=== PATIENT | male | born 1945 | race Caucasian/White ===

== ENCOUNTER → 2019-06-25 15:48 | Outpatient (CLI) | payer MEDICARE, SELFPAY ==
[2019-06-25 16:14] LABS: Hemoglobin 12.9 g/dL (13.5-17.5); Mean Corpuscular Hemoglobin 25.6 PG (26-34); Mean Corpuscular Volume 75.3 fL (80-100); Platelet Count 465 X10^3/uL (150-400); Red Blood Cell Count 5.04 X10^6/uL (4.5-5.9); Red Cell Distribution Width 15.9 % (11.6-14.8); White Blood Cell Count 12.1 X10^3/uL (4.5-11.0)
[2019-06-25 17:03] LABS: HEMOLYSIS 142 (0-50)
== END ==
PROVIDERS: PCP Internal Medicine; Visit Provider Registered Nurse
DX: I48.91 Unspecified atrial fibrillation (principal); K74.60 Unspecified cirrhosis of liver; Z13.6 Encounter for screening for cardiovascular disorders
CPT/HCPCS: 36415; 80053; 80061; 85027

== ENCOUNTER → 2019-06-27 14:24 | Outpatient (CLI) | payer MEDICARE, SELFPAY ==
[2019-06-27 15:27] LABS: Alanine Aminotransferase 31 IU/L (21-72); Albumin 3.6 g/dL (3.5-5.0); Albumin Globulin Ratio 0.7 (1.0-2.8); Alkaline Phosphatase 132 U/L (38-126); Aspartate Aminotransferase 72 IU/L (17-59); BUN Creatinine Ratio 34.3 (6-22); Bilirubin Total 0.6 mg/dL (0.2-1.3); Blood Urea Nitrogen 24 mg/dL (9-20); Calcium 9.1 mg/dL (8.4-10.2); Carbon Dioxide 24 mmol/L (22-32); Chloride 103 mmol/L (98-107); Cholesterol 154 mg/dL (140-199); Estimated Glomerular Filt Rate > 60.0 mL/min (>60); Globulin 5.4 g/dL (1.7-4.1); Glucose 103 mg/dL (80-110); HDL Cholesterol 38 mg/dL (40-60); HEMOLYSIS < 15 (0-50); LDL Cholesterol Calculated 102 mg/dL (<100); Potassium 4.6 mmol/L (3.4-5.1); Sodium 139 mmol/L (137-145); Triglycerides 69 mg/dL (35-150)
== END ==
PROVIDERS: PCP Internal Medicine; Visit Provider Registered Nurse
DX: I48.91 Unspecified atrial fibrillation (principal); K74.60 Unspecified cirrhosis of liver; Z13.6 Encounter for screening for cardiovascular disorders
CPT/HCPCS: 36415; 80053; 80061

== ENCOUNTER → 2019-07-15 15:54 | Outpatient (CLI) | payer MEDICARE, SELFPAY ==
--- NOTE | 2019-07-15 15:56 | DI.ECHO.S_ITS ---
[facility] +---------+ : : [address] : [address] : : : : [id number] : : : : Phone: [phone]---------+ Echocardiogram Report + + :Name: NYDIA VILLASENOR Study Date: 07/15/2019 Height: 69 in : :[facility] Exam Location: [facility] Weight: 120 lb : : Gender: Male BSA: 1.7 m2 : :: 1945 Age: 74 yrs BP: 110/60 mmHg: :Reason For Study: AFIB : : Performed By: Jack Hampton : :Referring: MARTA RIVERS : + + Interpretation Summary -There is global hypokinesis of the left ventricle with severely reduced LVEF of 10-15%. -The mid to apical anterior wall is akinetic. -The mid to apical septal wall and apex are dyskinetic. -The mid to apical inferior and inferoseptal wall are akinetic. -The lateral wall is hypokinetic. -There is a large, layered mural thrombus in th apex, extending to the anteroapical and inferoapical segments. The superficial part of the thrombus appears more like a fresh clot. -Overall this echo shows evidence of infarct in LAD and RCA territory and multivessel coronary artery disease with an apical LV thrombus. These findings are new compared to the prior study. -The PASP is elevated at 51 mmHg which is also new. -Patient was contacted and instructed to refer to the ER. -The ER provider was notified. -The primary care office was contacted for critical results. Procedure: A two-dimensional transthoracic echocardiogram with color flow and Doppler was performed. The study quality was technically difficult. Comparison is made with the echocardiogram of 05/09/14. A contrast injection of Definity was performed to improve assessment of LV function. The patient was in normal sinus rhythm during the exam. The patient was tachycardic with a heart rate of 94-120 beats per minute. Left Ventricle: The left ventricle is normal in size. Proximal septal thickening is noted. A mural thrombus is noted in the left ventricular apex and midway along the septal wall. The ejection fraction is estimated to be 10- 15%. -There is global hypokinesis of the left ventricle with severely reduced LVEF of 10-15%. -The mid to apical anterior wall is akinetic. -The mid to apical septal wall and apex are dyskinetic. -The mid to apical inferior and inferoseptal wall are akinetic. -The lateral wall is hypokinetic. Diastolic parameters suggest a pseudonormalization pattern, consistent with probable elevated filling pressures. Right Ventricle: The right ventricle is normal in size and function. Atria: The left atrium is severely dilated. Right atrial size is normal. There is no Doppler evidence for an atrial septal defect. Mitral Valve: The mitral valve is normal in structure and function. There is trace mitral regurgitation. Aortic Valve: The aortic valve is trileaflet. The aortic valve opens well. No aortic regurgitation is present. Tricuspid Valve: The tricuspid valve is normal in structure and function. There is trace tricuspid regurgitation. The right ventricular systolic pressure is estimated to be at least 51 mmHg based on an estimated right atrial pressure of 3 mm Hg. Pulmonic Valve: The pulmonic valve is not well visualized. Great Vessels: The aortic root is normal size. The dimensions of the ascending aorta are normal. The pulmonary artery is normal size. The IVC is of normal diameter and collapses greater than 50% with a sniff. This suggests a low right atrial pressure of 3 mm Hg. Pericardium/ Pleura There is no pericardial effusion. There is no pleural effusion. MMode/2D Measurements & Calculations LVIDd: 5.4 cm LVOT diam: 2.0 cm LVIDs: 4.7 cm Ao root diam: 3.3 cm FS: 13.8 % Aortic Jxn: 2.5 cm EPSS: 1.2 cm asc Aorta Diam: 3.0 cm IVSd: 0.92 cm Ao Arch Diam (Prox Trans): 2.5 cm LVPWd: 0.84 cm LV cordero. diameter/BSA (cm/m^2): 3.3 LV sys. diameter/BSA (cm/m^2): 2.8 LA dimension: 3.6 cm RA long axis: 4.2 cm LA A2 area: 24.1 cm2 RA area: 13.4 cm2 LA A4 area: 27.6 cm2 RA vol: 36.2 ml LA length (vol): 5.8 cm RA : 21.8 ml/m2 LA vol: 96.9 ml IVC diam: 1.9 cm LA vol index: 58.3 ml/m2 Doppler Measurements & Calculations Ao V2 max: 97.3 cm/sec LVOT Max Leonid: 79.0 cm/sec Ao V2 mean: 68.0 cm/sec LV V1 max P.5 mmHg Ao max P.8 mmHg LV V1 VTI: 9.2 cm Ao mean P.0 mmHg CHILO(I,D): 2.0 cm2 Ao V2 VTI: 14.7 cm CHILO(V,D): 2.6 cm2 sev ratio: 0.63 CHILO indexed to BSA (cm^2/m^2): 1.2 MV E max leonid: 63.6 cm/sec TR max leonid: 344.9 cm/sec MV A max leonid: 45.7 cm/sec TR max P.6 mmHg MV E/A: 1.4 PA V2 max: 74.8 cm/sec Med Peak E' Leonid: 2.9 cm/sec PA V2 mean: 58.4 cm/sec E/E' med: 22.0 PA mean P.4 mmHg MV dec time: 0.08 sec PA pr(Accel): 29.1 mmHg PA Accel Time: 0.11 sec SV(LVOT): 29.1 ml Electronically signed by: Christiano Saleh M.D. on Reading Physician:07/15/2019 05:50 PM
== END ==
PROVIDERS: PCP Internal Medicine; Visit Provider Registered Nurse
DX: I21.9 Acute myocardial infarction, unspecified (principal); I48.91 Unspecified atrial fibrillation; I25.10 Atherosclerotic heart disease of native coronary artery without angina pectoris
CPT/HCPCS: 93306; Q9957

== ENCOUNTER 2019-07-15 17:44 | Emergency (ER) | payer MEDICARE, SELFPAY ==
--- NOTE | 2019-07-15 17:52 | DI.RAD.S_ITS ---
PROCEDURE: XR CHEST 1V INDICATIONS: chest pain TECHNIQUE: One view of the chest was acquired. COMPARISON: [facility], , CHEST 2 VIEW, 09/25/2017, 16:18. FINDINGS: Surgical changes and devices: None. Lungs and pleura: Chronic interstitial changes are present. There is blunting of the costophrenic angles as well as nodular opacity in the lateral right base without interval change. There is increased opacity within the retrocardiac region haziness within the left base appearing new. Mediastinum: Mediastinal contours appear normal. Heart size is normal. Bones and chest wall: No suspicious bony lesions. Overlying soft tissues appear unremarkable. IMPRESSION: Retrocardiac opacity and hazy in the left base suggestive of effusion and retrocardiac consolidation possibly pneumonia. Dictated by: Sadie Payne M.D. on 07/15/2019 at 19:04 Approved by: Sadie Payne M.D. on 07/15/2019 at 19:05
[2019-07-15 17:59] VITALS: BP 115/78; PULSE 106; RESP 24; TEMP 36.6; O2SAT 98; BMI 17.9
--- NOTE | 2019-07-15 18:00 | ED_ITS ---
HPI - Recheck/Abnormal Lab/Rx General Chief Complaint: Recheck/Abnormal Lab/Rx Stated Complaint: Had Echo, got call to go to ER Time Seen by Provider: 07/15/19 17:52 Source: patient and family (daughter) Mode of arrival: ambulatory Limitations: no limitations History of Present Illness HPI narrative: 74-year-old male comes to the emergency department with complaint of abnormal echo. Patient had his echo ordered because he had of chest discomfort 2-3 weeks ago. Patient saw his primary care had an EKG which was on 06/25. Since then he denies any chest pain, shortness of breath, diaphoresis. He denies any nausea or vomiting. He denies any lightheadedness or syncope. He denies any swelling in his lower extremities. He denies any symptoms currently. He does have memory problems, he lives with his daughter who states that over the last 2 weeks she has not appreciated any complaint or new symptoms. His daughter states that he complained of chest discomfort and that was why they initiated an office visit and ECHO was ordered but has not been complaining of anything else recently. Patient lives with his daughter. Today his echo noted a large infarct in the apex interior with large ventricular clot and EF of 15%. Patient is currently asymptomatic int he room. Related Data Home Medications Medication Instructions Recorded Confirmed aspirin 81 mg PO DAILY 07/15/19 07/15/19 Previous Rx's Medication Instructions Recorded digoxin 125 mcg tablet 125 mcg PO DAILY #30 tab 06/27/19 Allergies Allergy/AdvReac Type Severity Reaction Status Date / Time No Known Drug Allergies Allergy Verified 07/15/19 17:59 Review of Systems Review of Systems ROS Unobtainable: All systems reviewed & are unremarkable except as noted in HPI and below PFSH Medical History Atrial fibrillation (Chronic 05/19/14) Hepatic cirrhosis (Chronic 05/19/14) Social History Smoking Status: Never smoker alcohol intake: current (Has not drank in a long time.) substance use type: marijuana Social History Smoking Status: Never smoker alcohol intake: current (Has not drank in a long time.) substance use type: marijuana Exam Narrative Exam Narrative: GENERAL: Alert and oriented, thin elderly male in no acute distress, patient able to answer some medical history but does not appear to be a reliable historian HEENT: Head normocephalic, atraumatic, EOMI, pupils reactive, face symmetric, moist mucous membranes NECK: Supple, full range of motion CARDIOVASCULAR: Regular rate and rhythm without murmurs, rubs or gallops. No JVD. No edema bilateral lower extremities. RESPIRATORY: Breath sounds equal bilaterally, no wheezes rales or rhonchi. No tachypnea, no accessory muscle use. ABDOMEN: Soft, nontender. Normoactive bowel sounds all 4 quadrants. No guarding or rebound, rigidity, no mass : No CVA tenderness EXTREMITIES: Normal range of motion. Neurovascularly intact NEUROLOGICAL: Cranial nerves II through XII grossly intact. Moving all extremities SKIN: Warm, dry, no petechiae, no rashes or lesions. Initial Vital Signs Initial Vital Signs: Vital Signs Temperature 97.8 F 07/15/19 17:59 Pulse Rate 106 H 07/15/19 17:59 Respiratory Rate 24 07/15/19 17:59 Blood Pressure 115/78 07/15/19 17:59 Pulse Oximetry 98 07/15/19 17:59 Course Orders Ordered: ED Orders 07/15/19 17:52 XR chest 1V Stat 07/15/19 17:53 EKG-12 Lead Stat 07/15/19 18:00 B Type Natriuretic Peptide Stat Complete Blood Count AUTO DIFF Stat Comprehensive Metabolic Panel Stat Digoxin Stat Lipase Stat Partial Thromboplastin Time Stat Prothrombin Time INR Stat Troponin & CK Cardiac Panel Stat Sodium Chloride (Normal Saline 0.9%) 1,000 mls @ 150 mls/hr IV CONT VAIBHAV Last Admin: 07/15/19 18:28 Dose: 150 mls/hr Documented by: MARTÍN Heparin Sodium/Dextrose (Heparin Drip) 25,000 unit in 500 mls @ 13.2 mls/hr IV CONT VAIBHAV; Protocol Last Admin: 07/15/19 18:33 Dose: 12 units/kg/hr, 13.2 mls/hr Documented by: MARTÍN Discontinued Medications Heparin Sodium (Porcine) (Heparin) 4,000 unit IV NOW ONE Stop: 07/15/19 18:26 Last Admin: 07/15/19 18:34 Dose: 4,000 unit Documented by: MARTÍN Vital Signs Vital signs: Vital Signs - 8 hr 07/15/19 17:59 07/15/19 18:52 07/15/19 19:30 Temperature 97.8 F Pulse Rate 106 H 101 H 101 H Respiratory Rate 24 19 18 Blood Pressure 115/78 Blood Pressure [Right Arm] 116/74 114/77 Pulse Oximetry 98 99 98 07/15/19 20:26 07/15/19 20:28 Temperature Pulse Rate 91 H Respiratory Rate 22 Blood Pressure Blood Pressure [Right Arm] 114/71 Pulse Oximetry 99 MDM - Recheck/Abnormal Lab/Rx Lab Data Attestation: I reviewed the patient's lab results. Result diagrams: 07/15/19 18:00 07/15/19 18:00 Labs: Lab Results 07/15/19 07/15/19 07/15/19 Range/Units 18:00 18:00 18:00 WBC 8.6 (4.5-11.0) X10^3/uL RBC 4.40 L (4.5-5.9) X10^6/uL Hgb 10.9 L (13.5-17.5) g/dL Hct 33.8 L (41-53) % MCV 76.9 L (80-100) fL MCH 24.7 L (26-34) PG MCHC 32.1 (30-36) % RDW 17.0 H (11.6-14.8) % Plt Count 415 H (150-400) X10^3/uL Neut % (Auto) 86.2 H (50-75) % Lymph % (Auto) 7.4 L (25-40) % Perkins % (Auto) 5.3 (3-14) % Eos % (Auto) 0.5 L (2-4) % Baso % (Auto) 0.6 (0-2) % Neut # (Auto) 7400 H (6620-1627) /uL Lymph # (Auto) 600 L (4632-6187) /uL Perkins # (Auto) 500 (0-900) /uL Eos # (Auto) 0 (0-450) /uL Baso # (Auto) 100 (0-100) /uL PT 13.4 H (10.1-12.7) SECONDS INR 1.2 (0.9-1.3) APTT 33 (26.4-36.2) SECONDS Sodium 137 (137-145) mmol/L Potassium 3.8 (3.4-5.1) mmol/L Chloride 104 (98-107) mmol/L Carbon Dioxide 21 L (22-32) mmol/L BUN 19 (9-20) mg/dL Creatinine 0.60 L (0.66-1.25) mg/dL Estimated GFR > 60.0 (>60) mL/min BUN/Creatinine Ratio 31.7 H (6-22) Glucose 121 H (80-110) mg/dL Calcium 8.4 (8.4-10.2) mg/dL Total Bilirubin 0.6 (0.2-1.3) mg/dL AST 32 (17-59) IU/L ALT 19 L (21-72) IU/L Alkaline Phosphatase 150 H (38-126) U/L Total Creatine Kinase 54 L (55-170) U/L CK-MB (CK-2) TNP CK-MB (CK-2) Rel Index TNP Troponin I 1.420 H* (0.01-0.034) ng/mL B-Natriuretic Peptide 2810 H (<100) Total Protein 8.4 H (6.3-8.2) g/dL Albumin 3.4 L (3.5-5.0) g/dL Globulin 5.0 H (1.7-4.1) g/dL Albumin/Globulin Ratio 0.7 L (1.0-2.8) Lipase 70 (23-300) U/L Digoxin (0.8-2.0) ng/mL 07/15/19 Range/Units 18:00 WBC (4.5-11.0) X10^3/uL RBC (4.5-5.9) X10^6/uL Hgb (13.5-17.5) g/dL Hct (41-53) % MCV (80-100) fL MCH (26-34) PG MCHC (30-36) % RDW (11.6-14.8) % Plt Count (150-400) X10^3/uL Neut % (Auto) (50-75) % Lymph % (Auto) (25-40) % Perkins % (Auto) (3-14) % Eos % (Auto) (2-4) % Baso % (Auto) (0-2) % Neut # (Auto) (0257-8108) /uL Lymph # (Auto) (1375-9634) /uL Perkins # (Auto) (0-900) /uL Eos # (Auto) (0-450) /uL Baso # (Auto) (0-100) /uL PT (10.1-12.7) SECONDS INR (0.9-1.3) APTT (26.4-36.2) SECONDS Sodium (137-145) mmol/L Potassium (3.4-5.1) mmol/L Chloride (98-107) mmol/L Carbon Dioxide (22-32) mmol/L BUN (9-20) mg/dL Creatinine (0.66-1.25) mg/dL Estimated GFR (>60) mL/min BUN/Creatinine Ratio (6-22) Glucose (80-110) mg/dL Calcium (8.4-10.2) mg/dL Total Bilirubin (0.2-1.3) mg/dL AST (17-59) IU/L ALT (21-72) IU/L Alkaline Phosphatase (38-126) U/L Total Creatine Kinase (55-170) U/L CK-MB (CK-2) CK-MB (CK-2) Rel Index Troponin I (0.01-0.034) ng/mL B-Natriuretic Peptide (<100) Total Protein (6.3-8.2) g/dL Albumin (3.5-5.0) g/dL Globulin (1.7-4.1) g/dL Albumin/Globulin Ratio (1.0-2.8) Lipase (23-300) U/L Digoxin < 0.4 L (0.8-2.0) ng/mL Imaging Data Chest x-ray: Radiologist's impression: [address] [address] XRay Report Signed Patient: Graham Baker HMR#: [id number] : 6Acct:[id number] Age/Sex: 74 / MDate of Service: 07/15/19 Loc: ED Accession Number: [id number] Procedure: XR chest 1V Ordering Provider: Brigida Mckeno D.O. PROCEDURE: XR CHEST 1V INDICATIONS: chest pain TECHNIQUE: One view of the chest was acquired. COMPARISON: [facility], CR, CHEST 2 VIEW, 09/25/2017, 16:18. FINDINGS: Surgical changes and devices: None. Lungs and pleura: Chronic interstitial changes are present. There is blunting of the costophrenic angles as well as nodular opacity in the lateral right base without interval change. There is increased opacity within the retrocardiac region haziness within the left base appearing new. Mediastinum: Mediastinal contours appear normal. Heart size is normal. Bones and chest wall: No suspicious bony lesions. Overlying soft tissues appear unremarkable. IMPRESSION: Retrocardiac opacity and hazy in the left base suggestive of effusion and retrocardiac consolidation possibly pneumonia. Dictated by: Sadie Payne M.D. on 07/15/2019 at 19:04 Approved by: Sadie Payne M.D. on 07/15/2019 at 19:05 ECHO: Radiologist's impression: [facility] DATE TYPE STATUS AUTHOR Hx 07/15/19 17:52 07/15/19 15:56 Christiano Saleh OliviaGraham Ruby 74, 1945 [facility] ER, Main ED R11 175.26cm 55kg BMI: 17.9kg/m? Recheck/Abnormal Lab/Rx Search Chart No Data to Display ONSET 05/19/14 05/19/14 Today 17:59 [place],Graham Ruby 74 [address] [address] Echocardiography Report Signed Patient: Graham Baker [facility]#: [id number] : 1945cct:[id number] Age/Sex: 74 / MDate of Service: 07/15/19 Loc: ECHO Accession Number: [id number] Procedure: EC echo doppler complete Ordering Provider: Marta Taylor [place] +---------+ [facility] +---------+ : : [address] [place] [address] : : : : [place], [place] : : : : [id number] : : : : Phone: [phone] : [phone]---------+ Echocardiogram Report + + :Name: GRAHAM BAKER Study Date: 07/15/2019 Height: 69 in : :[facility] Exam Location: [facility] Weight: 120 lb : : Gender: Male BSA: 1.7 m2 : :: 1945 Age: 74 yrs BP: 110/60 mmHg: :Reason For Study: AFIB : : Performed By: Jack Hampton : :Referring: MARTA TAYLOR : + + Interpretation Summary -There is global hypokinesis of the left ventricle with severely reduced LVEF of 10-15%. -The mid to apical anterior wall is akinetic. -The mid to apical septal wall and apex are dyskinetic. -The mid to apical inferior and inferoseptal wall are akinetic. -The lateral wall is hypokinetic. -There is a large, layered mural thrombus in th apex, extending to the anteroapical and inferoapical segments. The superficial part of the thrombus appears more like a fresh clot. -Overall this echo shows evidence of infarct in LAD and RCA territory and multivessel coronary artery disease with an apical LV thrombus. These findings are new compared to the prior study. -The PASP is elevated at 51 mmHg which is also new. -Patient was contacted and instructed to refer to the ER. -The ER provider was notified. -The primary care office was contacted for critical results. Procedure: A two-dimensional transthoracic echocardiogram with color flow and Doppler was performed. The study quality was technically difficult. Comparison is made with the echocardiogram of 05/09/14. A contrast injection of Definity was performed to improve assessment of LV function. The patient was in normal sinus rhythm during the exam. The patient was tachycardic with a heart rate of 94-120 beats per minute. Left Ventricle: The left ventricle is normal in size. Proximal septal thickening is noted. A mural thrombus is noted in the left ventricular apex and midway along the septal wall. The ejection fraction is estimated to be 10- 15%. -There is global hypokinesis of the left ventricle with severely reduced LVEF of 10-15%. -The mid to apical anterior wall is akinetic. -The mid to apical septal wall and apex are dyskinetic. -The mid to apical inferior and inferoseptal wall are akinetic. -The lateral wall is hypokinetic. Diastolic parameters suggest a pseudonormalization pattern, consistent with probable elevated filling pressures. Right Ventricle: The right ventricle is normal in size and function. Atria: The left atrium is severely dilated. Right atrial size is normal. There is no Doppler evidence for an atrial septal defect. Mitral Valve: The mitral valve is normal in structure and function. There is trace mitral regurgitation. Aortic Valve: The aortic valve is trileaflet. The aortic valve opens well. No aortic regurgitation is present. Tricuspid Valve: The tricuspid valve is normal in structure and function. There is trace tricuspid regurgitation. The right ventricular systolic pressure is estimated to be at least 51 mmHg based on an estimated right atrial pressure of 3 mm Hg. Pulmonic Valve: The pulmonic valve is not well visualized. Great Vessels: The aortic root is normal size. The dimensions of the ascending aorta are normal. The pulmonary artery is normal size. The IVC is of normal diameter and collapses greater than 50% with a sniff. This suggests a low right atrial pressure of 3 mm Hg. Pericardium/ Pleura There is no pericardial effusion. There is no pleural effusion. MMode/2D Measurements & Calculations LVIDd: 5.4 cm LVOT diam: 2.0 cm LVIDs: 4.7 cm Ao root diam: 3.3 cm FS: 13.8 % Aortic Jxn: 2.5 cm EPSS: 1.2 cm asc Aorta Diam: 3.0 cm IVSd: 0.92 cm Ao Arch Diam (Prox Trans): 2.5 cm LVPWd: 0.84 cm LV cordero. diameter/BSA (cm/m^2): 3.3 LV sys. diameter/BSA (cm/m^2): 2.8 LA dimension: 3.6 cm RA long axis: 4.2 cm LA A2 area: 24.1 cm2 RA area: 13.4 cm2 LA A4 area: 27.6 cm2 RA vol: 36.2 ml LA length (vol): 5.8 cm RA : 21.8 ml/m2 LA vol: 96.9 ml IVC diam: 1.9 cm LA vol index: 58.3 ml/m2 Doppler Measurements & Calculations Ao V2 max: 97.3 cm/sec LVOT Max Leonid: 79.0 cm/sec Ao V2 mean: 68.0 cm/sec LV V1 max P.5 mmHg Ao max P.8 mmHg LV V1 VTI: 9.2 cm Ao mean P.0 mmHg CHILO(I,D): 2.0 cm2 Ao V2 VTI: 14.7 cm CHILO(V,D): 2.6 cm2 sev ratio: 0.63 CHILO indexed to BSA (cm^2/m^2): 1.2 MV E max leonid: 63.6 cm/sec TR max leonid: 344.9 cm/sec MV A max leonid: 45.7 cm/sec TR max P.6 mmHg MV E/A: 1.4 PA V2 max: 74.8 cm/sec Med Peak E' Leonid: 2.9 cm/sec PA V2 mean: 58.4 cm/sec E/E' med: 22.0 PA mean P.4 mmHg MV dec time: 0.08 sec PA pr(Accel): 29.1 mmHg PA Accel Time: 0.11 sec SV(LVOT): 29.1 ml Electronically signed by: Christiano Saleh M.D. on Reading Physician:07/15/2019 05:50 PM ECG Data Attestation: I personally reviewed and interpreted this ECG as follows: Prior ECG tracings: available for review Interpretation: ST elevation in V2 V3 V4 ST elevation area, this is new in [facility]. Patient has a prior EKG from 06/25/2019 which shows AFib and does not show ST elevation. MDM Narrative Medical decision making narrative: Dr. Coronado, called and spoke with Dr. Mckeon that patient had ECHO today and showed a large infarct with a large ventricular clot an EF of 15%. Patient has EKG with new changes. He is currently asymptomatic. Patient EKG shows new changes with ST elevation, patient is currently asympatomatic in the room and per report from patient and family for the last 2- [address] Coronado, EKG from today and prior were sent and reviewed. Plan to treat patient as MN but no STEMI as q waves are present. asa, heparin gtt. She recommends no Plavix and to hold beta-adrian until patient is evaluated at their facility. Um contacted [facility] and they do not have any beds. Spoke with patient and family they would prefer belly him at that point. I spoke with Dr. Acosta from [facility] cardiology she recommends to continue the plan that was initiated by Dr. Coronado. She has the patient be admitted to the hospitalist, if were able to get echo images to them that would be very appreciated. I spoke with Dr. Blanton hospitalist whom accepts, discussed patient's new EKG joint changes, positive troponin, echo findings including EF of 15% as well as a left ventricular clot and wall motion abnormalities. No prior EKGs are available for review. Patient and family seem open to intervention although reserved. ECHO images would not fit on disk, were pushed to [place]. Patient continues to be chest pain free in department with HR being slightly elevated upon arrival and currently in 90's, BP has been 110's range systolic. Discharge Plan Departure Patient Disposition: [facility] Clinical Impression: ST elevation (STEMI) myocardial infarction, Left ventricular apical thrombus Prescriptions: No Action digoxin [Digox] 125 mcg tablet 125 mcg PO DAILY Qty: 30 RF: 2 aspirin 81 mg Tablet,Delayed Release (Dr/Ec) 81 mg PO DAILY RF: 0 Referrals: Bjorn Zapata MD [Primary Care Provider] -
[2019-07-15 18:12] LABS: Add Manual Diff / Slide Review NO; Basophils Absolute Auto 100 /uL (0-100); Basophils Percent Auto 0.6 % (0-2); Eosinophils Absolute Auto 0 /uL (0-450); Eosinophils Percent Auto 0.5 % (2-4); Hematocrit 33.8 % (41-53); Hemoglobin 10.9 g/dL (13.5-17.5); Lymphocytes Absolute Auto 600 /uL (1100-4500); Lymphocytes Percent Auto 7.4 % (25-40); Mean Corpuscular HGB Conc 32.1 % (30-36); Mean Corpuscular Hemoglobin 24.7 PG (26-34); Mean Corpuscular Volume 76.9 fL (80-100); Monocytes Absolute Auto 500 /uL (0-900); Monocytes Percent Auto 5.3 % (3-14); Neutrophils Absolute Auto 7400 /uL (1500-7000); Neutrophils Percent Auto 86.2 % (50-75); Platelet Count 415 X10^3/uL (150-400); White Blood Cell Count 8.6 X10^3/uL (4.5-11.0)
[2019-07-15 18:19] LABS: INR 1.2 (0.9-1.3); Prothrombin Time 13.4 SECONDS (10.1-12.7)
[2019-07-15 18:22] LABS: PTT Partial Thromboplastin Tim 33 SECONDS (26.4-36.2)
[2019-07-15 18:23] LABS: Alanine Aminotransferase 19 IU/L (21-72); Albumin 3.4 g/dL (3.5-5.0); Albumin Globulin Ratio 0.7 (1.0-2.8); Alkaline Phosphatase 150 U/L (38-126); Aspartate Aminotransferase 32 IU/L (17-59); BUN Creatinine Ratio 31.7 (6-22); Bilirubin Total 0.6 mg/dL (0.2-1.3); Blood Urea Nitrogen 19 mg/dL (9-20); Calcium 8.4 mg/dL (8.4-10.2); Carbon Dioxide 21 mmol/L (22-32); Chloride 104 mmol/L (98-107); Creatine Kinase 54 U/L (55-170); Estimated Glomerular Filt Rate > 60.0 mL/min (>60); Glucose 121 mg/dL (80-110); HEMOLYSIS 23 (0-50); Lipase 70 U/L (23-300); Potassium 3.8 mmol/L (3.4-5.1); Sodium 137 mmol/L (137-145); Total Protein 8.4 g/dL (6.3-8.2)
[2019-07-15] MEDS: SODIUM CHLORIDE 0.9% 1,000 ML 150 ML IV (18:28)
[2019-07-15] MEDS: HEPARIN DRIP 25,000 UNIT/500 ML IV.SOLN 13.2 UNIT IV (18:33)
[2019-07-15] MEDS: HEPARIN 5,000 UNIT/ML VIAL 4000 UNIT IV (18:34)
[2019-07-15 18:41] LABS: Digoxin < 0.4 ng/mL (0.8-2.0)
[2019-07-15 18:44] LABS: B Type Natriuretic Peptide 2810 (<100)
[2019-07-15 18:52] VITALS: BP 116/74; PULSE 101; RESP 19; O2SAT 99
[2019-07-15 19:30] VITALS: BP 114/77; PULSE 101; RESP 18; O2SAT 98
[2019-07-15 20:26] VITALS: BP 114/71; PULSE 91; O2SAT 99
[2019-07-15 20:28] VITALS: RESP 22
--- NOTE | 2019-07-15 21:01 | PC.NURSE ---
report called to Shimon in the PCU at [facility]
--- NOTE | 2019-07-15 21:07 | PC.NURSE ---
called patient's daughter, brooke at [phone] and informed her of care plan to transfer tom to [facility]/str[facility], informed her of travel time, room number, and unit phone number
--- NOTE | 2019-07-15 21:37 | PC.NURSE ---
infusions transferred to [facility], will continue them en route, report given to ramses on ambulance crew
== END 2019-07-15 21:43 | disposition short-term general hospital (02) ==
PROVIDERS: Emergency Medicine; Emergency Provider Emergency Medicine; PCP Internal Medicine
DX: I21.3 ST elevation (STEMI) myocardial infarction of unspecified site (principal); I51.3 Intracardiac thrombosis, not elsewhere classified; I48.91 Unspecified atrial fibrillation; I25.10 Atherosclerotic heart disease of native coronary artery without angina pectoris
CPT/HCPCS: 36591; 71045; 80053; 80162; 82550; 83690; 83880; 84484; 85025; 85610; 85730; 93005; 93010; 93306; 96365; 96366; 99284; 99285; J1644; Q9957

== ENCOUNTER 2019-07-28 16:02 | Emergency (ER) | payer MEDICARE, SELFPAY ==
[2019-07-28 16:09] VITALS: BP 90/59; PULSE 95; RESP 30; TEMP 36.1; O2SAT 78
--- NOTE | 2019-07-28 16:24 | ED_ITS ---
HPI - SOB/Dyspnea General Chief Complaint: Shortness of Breath/Dyspnea Stated Complaint: SOB Time Seen by Provider: 07/28/19 16:05 Source: patient and family Mode of arrival: Wheelchair Limitations: no limitations History of Present Illness HPI Narrative: 74-year-old male smoker with history of hypertension, former GA, hyperlipidemia presents with his daughter in the chief complaint of a sudden onset shortness of breath and chest pressure that started while at rest about 4 hours ago. He feels a bit dizzy and lightheaded and is visibly in distress. He apparently was an [place] a few weeks ago for a cardiac work up. He denies any prior cardiac intervention such as heart catheterization or stent. He denies any obvious provocation, palliation or radiation. MD Complaint: shortness of breath and chest pain Onset (ago): hour(s) Severity: severe Consistency/Duration: constant Relieving factors: nothing Exacerbating factors: exertion Known history of: COPD Associated symptoms: chest pain Treatment prior to arrival: none Related Data Home oxygen amount: none Home Medications Medication Instructions Recorded Confirmed aspirin 81 mg PO DAILY 07/15/19 07/23/19 cyanocobalamin (vitamin B-12) 1,000 mcg PO DAILY 07/23/19 07/23/19 1,000 mcg capsule ferrous sulfate 325 mg (65 mg 325 mg PO DAILY 07/23/19 07/23/19 iron) tablet lisinopril 2.5 mg tablet 2.5 mg PO DAILY 07/23/19 07/23/19 warfarin 3 mg tablet 3 mg PO DAILY 07/23/19 07/23/19 atorvastatin 40 mg PO QPM 07/28/19 07/28/19 metoprolol succinate 12.5 mg PO DAILY 07/28/19 07/28/19 Previous Rx's Medication Instructions Recorded digoxin 125 mcg tablet 125 mcg PO DAILY #30 tab 06/27/19 Allergies Allergy/AdvReac Type Severity Reaction Status Date / Time No Known Drug Allergies Allergy Verified 07/23/19 14:08 Review of Systems Constitutional Constitutional: Denies chills, Denies fatigue, Denies fever(s), Denies frequent falls, Denies lethargy and Denies weakness Eyes Eyes: Denies change in vision, Denies eye discharge, Denies irritation and Denies loss of vision ENT Ears, Nose, Mouth, and Throat: Denies change in voice, Denies dizziness, Denies neck pain, Denies sore throat and Denies throat swelling Cardiovascular Cardiovascular: Reports chest pain, Denies irregular heart rhythm, Denies lightheadedness, Denies palpitations, Reports dyspnea, Reports dyspnea on exertion and Denies orthopnea Respiratory Respiratory: Denies cough, Reports dyspnea, Reports dyspnea on exertion and Denies wheezing Gastrointestinal Gastrointestinal: Denies abdominal pain, Denies change in bowel habits, Denies diarrhea, Denies nausea and Denies vomiting Genitourinary Genitourinary: Denies hematuria, Denies flank pain, Denies urinary incontinence and Denies urinary urgency Musculoskeletal Musculoskeletal: Denies back pain, Denies muscle weakness, Denies neck pain, Denies numbness and Denies tingling Integumentary/Breasts Skin/Breast: Denies pruritus, Denies erythema, Denies rash and Denies wounds Neurologic Neurologic: Denies behavioral changes, Denies confusion, Denies dizziness, Denies frequent falls, Denies loss of vision, Denies numbness, Denies tingling and Denies weakness Psychiatric Psychiatric: Denies anxiety, Denies behavioral changes, Denies confusion, Denies depression, Denies homicidal ideation and Denies suicidal ideation Endocrine Endocrine: Denies fatigue, Denies flushing and Denies palpitations Hematologic/Lymphatic Hematologic/Lymphatic: Denies easy bruising Allergic/Immunologic Allergic/Immunologic: Denies urticaria, Denies throat swelling and Denies wheezing PFSH Medical History Atrial fibrillation (Chronic 05/19/14) Hepatic cirrhosis (Chronic 05/19/14) Social History Smoking Status: Never smoker alcohol intake: current (Has not drank in a long time.) substance use type: marijuana Social History Smoking Status: Never smoker alcohol intake: current (Has not drank in a long time.) substance use type: marijuana Exam Narrative Exam Narrative: GENERAL: [74] year old patient appears older than stated age. Thin, temporal wasting, critically ill, in obvious extremities HEAD: Atraumatic. Normocephalic. EYES: Pupils equal round and reactive. Extraocular motions intact. No scleral icterus. No injection or drainage. ENT: Nose without bleeding, purulent drainage. Throat without erythema, tonsillar hypertrophy or exudate. Airway patent. NECK: Trachea midline. Non tender CARDIOVASCULAR: Regular rate and rhythm without murmurs, gallops, or rubs. RESPIRATORY: Tachypnea, obvious respiratory distress GASTROINTESTINAL: Abdomen soft, non-tender, nondistended. EXTREMITIES: No edema or joint tenderness. BACK: Nontender without deformity or crepitance. No flank tenderness. NEURO: AOx3. SKIN: No rash or erythema of visible areas Course Consultations Consultation #1: Dr. Byers happy to accept MDM - SOB/Dyspnea ECG Data Attestation: I personally reviewed and interpreted this ECG as follows: Interpretation: Sinus rhythm with ST elevations and large Q-waves in anteroseptal leads suggestive of acute or very recent GA. [facility] Narrative Medical decision making narrative: 74-year-old male, poor historian, unable to contribute much to the story states sudden onset significant symptoms starting 2-3 hours ago maybe as long as 4. Significant EKG changes significant risk factors, patient does want full treatment but is a DNR. EKG faxed to [facility]. He emergency physician accept in transfer. Discharge Plan Departure Patient Disposition: [facility] Clinical Impression: ST elevation (STEMI) myocardial infarction Qualifiers: Involved coronary artery: unspecified coronary artery Qualified Code(s): I21.3 - ST elevation (STEMI) myocardial infarction of unspecified site Prescriptions: No Action cyanocobalamin (vitamin B-12) 1,000 mcg capsule 1,000 mcg PO DAILY RF: 0 lisinopril 2.5 mg tablet 2.5 mg PO DAILY RF: 0 warfarin 3 mg tablet 3 mg PO DAILY RF: 0 ferrous sulfate 325 mg (65 mg iron) tablet 325 mg PO DAILY RF: 0 digoxin [Digox] 125 mcg tablet 125 mcg PO DAILY Qty: 30 RF: 2 aspirin 81 mg Tablet,Delayed Release (Dr/Ec) 81 mg PO DAILY RF: 0 metoprolol succinate 25 mg tablet extended release 24 hr 12.5 mg PO DAILY RF: 0 atorvastatin 40 mg tablet 40 mg PO QPM RF: 0 Referrals: Bjorn Zapata MD [Primary Care Provider] -
[2019-07-28 16:30] LABS: Add Manual Diff / Slide Review NO; Basophils Absolute Auto 100 /uL (0-100); Basophils Percent Auto 0.8 % (0-2); Eosinophils Absolute Auto 0 /uL (0-450); Eosinophils Percent Auto 0.2 % (2-4); Hematocrit 34.9 % (41-53); Hemoglobin 10.4 g/dL (13.5-17.5); Lymphocytes Absolute Auto 1800 /uL (1100-4500); Lymphocytes Percent Auto 13.1 % (25-40); Mean Corpuscular HGB Conc 29.8 % (30-36); Mean Corpuscular Hemoglobin 24.4 PG (26-34); Mean Corpuscular Volume 81.9 fL (80-100); Monocytes Absolute Auto 1200 /uL (0-900); Monocytes Percent Auto 8.4 % (3-14); Neutrophils Absolute Auto 10700 /uL (1500-7000); Neutrophils Percent Auto 77.5 % (50-75); Platelet Count 493 X10^3/uL (150-400); Red Blood Cell Count 4.27 X10^6/uL (4.5-5.9); Red Cell Distribution Width 19.2 % (11.6-14.8); White Blood Cell Count 13.8 X10^3/uL (4.5-11.0)
[2019-07-28] MEDS: HEPARIN 5,000 UNIT/ML VIAL 5000 UNIT (16:31)
[2019-07-28] MEDS: ASPIRIN 81 MG CHEW TAB (16:31)
[2019-07-28 16:39] LABS: Alanine Aminotransferase 152 IU/L (21-72); Albumin 3.2 g/dL (3.5-5.0); Albumin Globulin Ratio 0.7 (1.0-2.8); Alkaline Phosphatase 138 U/L (38-126); Aspartate Aminotransferase 147 IU/L (17-59); BUN Creatinine Ratio 51.1 (6-22); Bilirubin Total 0.6 mg/dL (0.2-1.3); Blood Urea Nitrogen 46 mg/dL (9-20); Calcium 8.7 mg/dL (8.4-10.2); Carbon Dioxide 15 mmol/L (22-32); Chloride 112 mmol/L (98-107); Creatine Kinase 57 U/L (55-170); Estimated Glomerular Filt Rate > 60.0 mL/min (>60); Globulin 4.7 g/dL (1.7-4.1); Glucose 150 mg/dL (80-110); Potassium 4.3 mmol/L (3.4-5.1); Sodium 144 mmol/L (137-145); Total Protein 7.9 g/dL (6.3-8.2)
[2019-07-28 16:50] LABS: HEMOLYSIS 55 (0-50)
[2019-07-28 16:54] LABS: Troponin I 0.382 ng/mL (0.01-0.034)
== END 2019-07-28 16:39 | disposition short-term general hospital (02) ==
PROVIDERS: Emergency Provider Emergency Medicine; PCP Internal Medicine
DX: I21.3 ST elevation (STEMI) myocardial infarction of unspecified site (principal)
CPT/HCPCS: 36415; 80053; 82550; 84484; 85025; 93005; 93010; 93041; 99284; 99291; J1644